=== PATIENT | female | born 1975 | race Caucasian/White ===

== ENCOUNTER 2019-07-30 17:42 | Emergency (ER) | payer OTHER ==
[~2019-07-30] VITALS: Ht 157.4 cm; Wt 102.1 kg
[~2019-07-30 17:42] MED LIST: ALDOMET500 MG PO; METFORMIN1000 MG PO; NATURAL FOLIC0.4 MG PO; NKHM; PNV-SELECT1 TAB PO; TAMIFLU75 MG PO; TESSALON PERLE200 MG PO; VICODIN 5/500 505 MG PO; ZITHROMAX Z PA250 MG PO
[2019-07-30 17:43] VITALS: BP 147/78
[2019-07-30] MEDS ORDERED: JANUMET XR 1001 EACH PO (17:46)
[2019-07-30] MEDS ORDERED: TESSALON PERLE100 M1 PO (18:24)
[2019-07-30] MEDS ORDERED: PREDNISONE20 M1 PO (18:24)
[2019-07-30] MEDS ORDERED: PROVENTIL HFA6.7 GM INH (18:24)
== END 2019-07-30 19:40 | disposition home or self-care (01) ==
LOC: ED 17:42
DX: J40 Bronchitis, not specified as acute or chronic (principal); J04.0 Acute laryngitis; E11.9 Type 2 diabetes mellitus without complications; F17.200 Nicotine dependence, unspecified, uncomplicated; Z79.899 Other long term (current) drug therapy

== ENCOUNTER 2019-08-17 18:00 | Inpatient (IN) | payer OTHER ==
[~2019-08-17] VITALS: Ht 157.4 cm; Wt 102.2 kg
[~2019-08-17 18:00] MED LIST changes: +JANUMET XR 1001 EACH PO; +PREDNISONE20 M1 PO; +PROVENTIL HFA6.7 GM INH; +TESSALON PERLE100 M1 PO
[2019-08-17 18:03] VITALS: BP 155/94
[2019-08-17 19:38] VITALS: BP 132/72
[2019-08-17 20:15] LABS: BASO # 0.1 10*3/uL (0.0-0.1); BASO % 0.6 % (0.0-1.0); EOS # 0.2 10*3/uL (0.0-0.4); EOS % 1.9 % (1.0-4.0); HEMATOCRIT 43.1 % (37.0-47.0); LYMPH # 2.9 10*3/uL (1.3-4.4); LYMPH % 32.5 % (27.0-41.0); MEAN CELL VOLUME 85.3 fl (81.0-99.0); MEAN CORPUSCULAR HGB 27.7 pg (27.0-31.0); MEAN CORPUSCULAR HGB CONC 32.5 g/dl (33.0-37.0); MEAN PLATELET VOLUME 11.5 fl (9.6-12.3); MONO # 0.5 10*3/uL (0.1-1.0); MONO % 5.9 % (3.0-9.0); NEUT # 5.3 10*3/uL (2.3-7.9); NEUT % 58.9 % (47.0-73.0); PLATELET COUNT AUTOMATED 241 10*3/uL (130-400); RED BLOOD COUNT 5.05 10*6/uL (4.10-5.10); RED CELL DISTRI WIDTH 14.6 % (0-14.5); WHITE BLOOD COUNT 9.1 10*3/uL (4.8-10.8)
[2019-08-17 20:31] LABS: ALBUMIN 3.4 gm/dl (3.1-4.5); ALKALINE PHOSPHATASE 126 U/L (45-117); BUN 7 mg/dl (7-24); CHLORIDE 104 mmol/L (98-107); CREATININE 0.74 mg/dL (0.55-1.02); POTASSIUM 3.8 mmol/L (3.5-5.1); SGOT/AST 13 IU/L (3-35); SGPT/ALT 31 U/L (12-78); SODIUM 135 mmol/L (136-145); TOTAL PROTEIN 7.2 gm/dL (6.4-8.2)
--- NOTE | 2019-08-17 20:46 | NUR ---
2037 NOTIFICATION FROM LAB LACTIC ACID OF 2.4 PROVIDER MADE AWARE. LUCIE LU RN.
[2019-08-17 21:30] VITALS: BP 156/78
--- NOTE | 2019-08-17 21:33 | NUR ---
A 44, admitted to , under the services of LISA Al DO with a diagnosis of PNEUMONITIS. Chief complaint is SHORTNESS OF BREATH. Patient arrived via stretcher from ER. Monitor applied. Initial assessment completed. Vital signs taken and recorded. LISA AL DO notified of admission to the unit. Orders received. See assessment for past medical history, medications and allergies. Patient and/or family oriented to unit. [facility]. Clothing/patient valuable form completed. ODETTE PEREA
--- NOTE | 2019-08-17 21:35 | NUR ---
PATIENT'S PULSE OX 88% ON ROOM AIR. 2L NC APPLIED. UP TO 94%
--- NOTE | 2019-08-17 21:45 | NUR ---
MED REC COMPLETED WITH PATIENT ALERT AND ORIENTED TO PERSON PLACE AND TIME
--- NOTE | 2019-08-17 22:39 | NUR ---
DR ANDUJAR AWARE OF MED REC BEING COMPLETED AND PATIENT'S PULSE OX BEING 88% UPON ARRIVAL TO THE FLOOR
--- NOTE | 2019-08-17 23:04 | NUR ---
DR ANDUJAR AWARE OF CRITICAL LACTIC ACID OF 3.4. ORDERS TAKEN
--- NOTE | 2019-08-17 23:41 | NUR ---
DR ANDUJAR AT BEDSIDE
[2019-08-18] VITALS: BP 165/90
--- NOTE | 2019-08-18 00:38 | NUR ---
OFF FLOOR TO CT
[2019-08-18 00:52] VITALS: BP 152/78
--- NOTE | 2019-08-18 01:02 | NUR ---
DR ANDUJAR AWARE OF BLOOD SUGAR 462. STATES TO GIVE 24 UNITS OF HUMALOG NOW
--- NOTE | 2019-08-18 04:16 | NUR ---
PATIENT RESTING IN BED WITH NO NEEDS MADE. BED IN LOWEST POSITION, CALL LIGHT IN REACH
[2019-08-18 07:41] LABS: HEMATOCRIT 41.3 % (37.0-47.0); HEMOGLOBIN 13.4 g/dl (12.0-16.0); MEAN CELL VOLUME 84.1 fl (81.0-99.0); MEAN CORPUSCULAR HGB 27.3 pg (27.0-31.0); MEAN CORPUSCULAR HGB CONC 32.4 g/dl (33.0-37.0); PLATELET COUNT AUTOMATED 234 10*3/uL (130-400); RED BLOOD COUNT 4.91 10*6/uL (4.10-5.10); RED CELL DISTRI WIDTH 14.5 % (0-14.5); WHITE BLOOD COUNT 9.8 10*3/uL (4.8-10.8)
[2019-08-18 07:56] LABS: BUN 9 mg/dl (7-24); CHLORIDE 107 mmol/L (98-107); CHOLESTEROL 258 mg/dL (<200); CREATININE 0.62 mg/dL (0.55-1.02); HDL CHOLESTEROL 41 mg/dl (40-60); LDL CHOLESTEROL 178 mg/dL (9-159); PHOSPHOROUS 3.1 mg/dL (2.5-4.9); POTASSIUM 3.9 mmol/L (3.5-5.1); SODIUM 138 mmol/L (136-145); TRIGLYCERIDES 197 mg/dl (<150); VLDL CHOLESTEROL 39 mg/dL (6-40)
[2019-08-18 08:03] LABS: THYROID STIM HORMONE (HS) 0.341 uIU/ml (0.358-4.75)
[2019-08-18 08:22] LABS: BASOPHILS 1 % (0-1); PLATELET SUFFICIENCY NORMAL (NORMAL); POLYCHROMASIA SLIGHT; TOTAL CELLS COUNTED 100 #CELLS
--- NOTE | 2019-08-18 09:00 | NUR ---
Soldering Machine Tender in to talk to patient. Patient states lives at home with . There are few steps in the home. Physician: aiden castellano Pharmacy: [facility] health services: none Patient's level of ADLs: INDEPENDENT Patient has working utilities: all working DME: none Follow-up physician's appointment after d/c: will be made by hospitalist nurse director upon discharge Does patient want to access PORTAL?: no Discharge plan discussed with patient, she states she lives at home with her , she is independent in adls and ambulation, she states she will return home when medically stable and denies any home needs. HOOD TREVIZO
[2019-08-18 12:00] VITALS: BP 145/84
[2019-08-18 16:00] VITALS: BP 141/71
[2019-08-18 20:00] VITALS: BP 154/77
[2019-08-19] VITALS: BP 127/63
--- NOTE | 2019-08-19 06:15 | NUR ---
DR. PENA NOTIFIED OF BLOOD SUGAR OF 400.
[2019-08-19 06:35] LABS: BASO % 0.1 % (0.0-1.0); EOS % 0.1 % (1.0-4.0); HEMATOCRIT 43.5 % (37.0-47.0); HEMOGLOBIN 13.7 g/dl (12.0-16.0); LYMPH # 1.3 10*3/uL (1.3-4.4); LYMPH % 11.9 % (27.0-41.0); MEAN CELL VOLUME 86.3 fl (81.0-99.0); MEAN CORPUSCULAR HGB 27.2 pg (27.0-31.0); MEAN CORPUSCULAR HGB CONC 31.5 g/dl (33.0-37.0); MEAN PLATELET VOLUME 11.6 fl (9.6-12.3); MONO # 0.3 10*3/uL (0.1-1.0); MONO % 3.1 % (3.0-9.0); NEUT # 9.2 10*3/uL (2.3-7.9); NEUT % 83.5 % (47.0-73.0); PLATELET COUNT AUTOMATED 256 10*3/uL (130-400); RED BLOOD COUNT 5.04 10*6/uL (4.10-5.10); RED CELL DISTRI WIDTH 14.9 % (0-14.5)
[2019-08-19 06:50] LABS: BUN 17 mg/dl (7-24); CHLORIDE 104 mmol/L (98-107); CREATININE 0.77 mg/dL (0.55-1.02); POTASSIUM 4.8 mmol/L (3.5-5.1); SODIUM 135 mmol/L (136-145)
[2019-08-19 12:00] VITALS: BP 146/82
[2019-08-19 16:00] VITALS: BP 151/81
[2019-08-19 20:00] VITALS: BP 147/74
[2019-08-20] VITALS: BP 138/84
[2019-08-20 08:00] VITALS: BP 154/94
[2019-08-20 08:46] LABS: BASO # 0.1 10*3/uL (0.0-0.1); BASO % 0.6 % (0.0-1.0); EOS # 0.2 10*3/uL (0.0-0.4); EOS % 1.9 % (1.0-4.0); HEMATOCRIT 43.6 % (37.0-47.0); HEMOGLOBIN 13.8 g/dl (12.0-16.0); LYMPH # 3.9 10*3/uL (1.3-4.4); LYMPH % 38.2 % (27.0-41.0); MEAN CELL VOLUME 86.7 fl (81.0-99.0); MEAN CORPUSCULAR HGB 27.4 pg (27.0-31.0); MEAN CORPUSCULAR HGB CONC 31.7 g/dl (33.0-37.0); MEAN PLATELET VOLUME 11.3 fl (9.6-12.3); MONO # 0.7 10*3/uL (0.1-1.0); MONO % 6.4 % (3.0-9.0); NEUT # 5.4 10*3/uL (2.3-7.9); NEUT % 52.4 % (47.0-73.0); PLATELET COUNT AUTOMATED 263 10*3/uL (130-400); RED BLOOD COUNT 5.03 10*6/uL (4.10-5.10); RED CELL DISTRI WIDTH 14.8 % (0-14.5); WHITE BLOOD COUNT 10.3 10*3/uL (4.8-10.8)
[2019-08-20 09:03] LABS: ALBUMIN 3.3 gm/dl (3.1-4.5); ALKALINE PHOSPHATASE 124 U/L (45-117); BUN 18 mg/dl (7-24); CHLORIDE 107 mmol/L (98-107); CREATININE 0.71 mg/dL (0.55-1.02); SGOT/AST 22 IU/L (3-35); SGPT/ALT 39 U/L (12-78); SODIUM 136 mmol/L (136-145); TOTAL PROTEIN 7.1 gm/dL (6.4-8.2)
[2019-08-20 09:04] LABS: POTASSIUM 3.6 mmol/L (3.5-5.1)
[2019-08-20 12:00] VITALS: BP 151/83
--- NOTE | 2019-08-20 12:26 | NUR ---
PATIENT ASSESSED FOR HOME O2. AT REST ON ROOM AIR SPO2 91%, HR 88, BP 149/84. DURING AMBULATION ON ROOM AIR SPO2 RANGED FROM 93%-89%, HR 90-117. POST AMBULATION AT REST ON ROOM AIR SPO2 92%, BP 173/82 HR 111. NURSE NOTIFIED PATINET DID NOT QUALIFY FOR HOME O2.
--- NOTE | 2019-08-20 12:55 | NUR ---
RESPIRATORY ASSESSED FOR HOME O2. RT STATED PATIENT DOES NOT QUALIFY FOR HOME O2.
[2019-08-20] MEDS ORDERED: ZITHROMAX250 MG PO (14:02)
--- NOTE | 2019-08-20 14:42 | NUR ---
PATIENT BEING DISCHARGED BUT UNABLE TO GET PERSCRIBED AZITHROMYCIN TODAY HER PHARMACY IS CLOSED. DR. LEWIS ORDERRED TO GIVE 9 PM DOSE NOW BEFOR PATIENT LEAVES IN ORDER TO NOT MISS TODAYS DOSE.
--- NOTE | 2019-08-20 15:47 | NUR ---
Discharge instructions reviewed with patient/family. Patient receptive and verbalizes understanding. Follow-up care arranged. Written instructions given to patient/family. KAREN AGUILAR
== END 2019-08-20 15:47 | disposition home or self-care (01) | DRG 193 ==
LOC: ED 18:00 → EDHOLD 20:47 → 4E 20:47 → 5E 08-19 18:29
PROVIDERS: Hospitalist; Internal Medicine; Nurse Practitioner Family; Student in an Organized Health Care Education/Training Program; ADMIT Internal Medicine
DX: J18.9 Pneumonia, unspecified organism (principal); J96.01 Acute respiratory failure with hypoxia; E87.2 Acidosis; E87.1 Hypo-osmolality and hyponatremia; I25.10 Atherosclerotic heart disease of native coronary artery without angina pectoris; E11.65 Type 2 diabetes mellitus with hyperglycemia; F17.210 Nicotine dependence, cigarettes, uncomplicated; Z71.6 Tobacco abuse counseling; Z87.01 Personal history of pneumonia (recurrent); Z98.891 History of uterine scar from previous surgery; Z82.49 Family history of ischemic heart disease and other diseases of the circulatory system; Z79.84 Long term (current) use of oral hypoglycemic drugs

== ENCOUNTER → 2020-03-14 | Outpatient (CLI) | payer OTHER ==
[~2020-03-14] MED LIST changes: +ZITHROMAX250 MG PO
== END | disposition home or self-care (01) ==
LOC: COVID19 00:14
DX: B34.9 Viral infection, unspecified (principal); Z20.828 Contact with and (suspected) exposure to other viral communicable diseases

== ENCOUNTER 2023-11-03 17:34 | Emergency (ER) | payer OTHER ==
[~2023-11-03] VITALS: Wt 98.9 kg
[2023-11-03 18:13] LABS: BASO # 0.1 10*3/uL (0.0-0.1); BASO % 0.6 % (0.0-1.0); EOS # 0.3 10*3/uL (0.0-0.4); EOS % 3.6 % (1.0-4.0); LYMPH # 2.3 10*3/uL (1.3-4.4); LYMPH % 27.2 % (27.0-41.0); MEAN CELL VOLUME 83.5 fl (81.0-99.0); MEAN CORPUSCULAR HGB 26.2 pg (27.0-31.0); MEAN CORPUSCULAR HGB CONC 31.3 g/dl (33.0-37.0); MEAN PLATELET VOLUME 10.1 fl (9.6-12.3); MONO # 0.5 10*3/uL (0.1-1.0); NEUT # 5.2 10*3/uL (2.3-7.9); NEUT % 61.8 % (47.0-73.0); PLATELET COUNT AUTOMATED 284 10*3/uL (130-400); RED BLOOD COUNT 4.55 10*6/uL (4.10-5.10); RED CELL DISTRI WIDTH 14.6 % (0-14.5); WHITE BLOOD COUNT 8.4 10*3/uL (4.8-10.8)
[2023-11-03 18:38] LABS: ALKALINE PHOSPHATASE 124 U/L (46-116); BUN 8 mg/dl (9-23); CHLORIDE 104 mmol/L (98-107); POTASSIUM 3.8 mmol/L (3.4-5.1); SGPT/ALT 55 U/L (5-49); TOTAL PROTEIN 7.5 gm/dL (6.0-8.0)
[2023-11-03] MEDS ORDERED: MOUNJARO5 MG/0.51 SQ (18:51)
[2023-11-03] MEDS ORDERED: METFORMIN HYD1000 MG PO (18:52)
[2023-11-03] MEDS ORDERED: Zestril,Prinivi40 MG PO (18:52)
[2023-11-03] MEDS ORDERED: ATORVASTATIN CA40 M1 PO (18:52)
[2023-11-03] MEDS ORDERED: AMLODIPINE BESYL5 MG PO (18:52)
[2023-11-03 19:29] VITALS: BP 170/78
[2023-11-03] MEDS ORDERED: AMOX-CLAV 875-1 EACH PO (19:41)
== END 2023-11-03 19:47 | disposition home or self-care (01) ==
LOC: ED 17:34
PROVIDERS: Nurse Practitioner
DX: J32.9 Chronic sinusitis, unspecified (principal); R03.0 Elevated blood-pressure reading, without diagnosis of hypertension; H92.02 Otalgia, left ear; R06.02 Shortness of breath; E11.9 Type 2 diabetes mellitus without complications; Z88.5 Allergy status to narcotic agent; Z98.890 Other specified postprocedural states; Z72.0 Tobacco use